=== PATIENT | male | born 1970 | race Hispanic/Latino ===

== ENCOUNTER 2016-10-28 03:50 | Emergency (ER) | payer MEDICAID ==
[2016-10-28 03:52] VITALS: BMI 40.1
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
[2016-10-28 04:15] VITALS: TEMP 97; O2SAT 98
[2016-10-28] MEDS ORDERED: Oxycodone/Acetaminophen 5/325 mg Tab PO STA (04:53)
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
[2016-10-28 06:04] VITALS: BP 148/76; PULSE 86; RESP 18
== END 2016-10-28 06:06 | disposition home or self-care (01) ==
LOC: ED 03:50
DX: S02.2XXA Fracture of nasal bones, initial encounter for closed fracture (principal); S02.81XA Fracture of other specified skull and facial bones, right side, initial encounter for closed fracture; Y04.0XXA Assault by unarmed brawl or fight, initial encounter; Y92.410 Unspecified street and highway as the place of occurrence of the external cause